=== PATIENT | female | born 1955 | race Caucasian/White ===

== ENCOUNTER 2025-03-03 18:29 | Outpatient (REF) | payer MEDICARE, SELFPAY ==
[2025-03-03 22:32] LABS: ALT 34 U/L (14-59); AST 16 U/L (15-37); Albumin 4.3 g/dL (3.4-5.0); Alkaline Phosphatase 125 U/L (46-116); Anion Gap 13.9 mmol/L (3-11); BUN 15 mg/dL (7-18); Bilirubin, Total 0.5 mg/dL (0.2-1.0); CO2 22.1 mmol/L (21.0-32.0); CREATININE 0.6 mg/dL (0.55-1.02); Calculated LDL 81 mg/dL (<100); Chloride 104 mmol/L (98-107); Cholesterol 155 mg/dL (<200); Glucose 114 mg/dL (74-106); HDL Cholesterol 45 mg/dL (>or=50); Sodium 140 mmol/L (136-145); TSH (W/Ref FT4) 0.66 uIU/mL (0.36-3.74); Triglyceride 148 mg/dL (<150)
[2025-03-05 13:31] LABS: ANA Interpretation Positive (Negative); ANA Titer Pattern 1:320 Homogeneous
== END 2025-03-03 18:30 | disposition home or self-care (01) ==
LOC: LBN 18:29
PROVIDERS: PCP Nurse Practitioner Family; Visit Provider Nurse Practitioner Family
DX: E78.5 Hyperlipidemia, unspecified (principal); E03.9 Hypothyroidism, unspecified; M25.40 Effusion, unspecified joint
CPT/HCPCS: 80053; 80061; 84443; 86038